=== PATIENT | male | born 2000 | race Caucasian/White ===

== ENCOUNTER 2020-03-21 21:53 | Emergency (ER) | payer OTHER ==
[~2020-03-21] VITALS: Ht 175.3 cm; Wt 100.0 kg
[2020-03-21] MEDS ORDERED: amox tr/potassium clavulanate 875/125mg TAB PO ONE (22:40)
[2020-03-21] MEDS ORDERED: naproxen 500mg tablet PO ONE (22:40)
[2020-03-21] MEDS ORDERED: HYDROcodone/acetaminophen 10/325mg tab PO ONE (22:40)
[2020-03-21] MEDS ORDERED: NAPR-56 PO (22:40)
[2020-03-21] MEDS ORDERED: AMOX-117 PO (22:40)
[2020-03-21 23:13] VITALS: BP 123/82
== END 2020-03-21 23:15 | disposition home or self-care (01) ==
LOC: ER 21:54
DX: S02.5XXB Fracture of tooth (traumatic), initial encounter for open fracture (principal); K04.7 Periapical abscess without sinus; K08.89 Other specified disorders of teeth and supporting structures; Z79.2 Long term (current) use of antibiotics; Z79.899 Other long term (current) drug therapy; X58.XXXA Exposure to other specified factors, initial encounter; Y93.89 Activity, other specified; Y92.89 Other specified places as the place of occurrence of the external cause; Y99.8 Other external cause status
CPT/HCPCS: 99284